=== PATIENT | female | born 1970 | race Caucasian/White ===

== ENCOUNTER 2018-11-14 11:40 | Day surgery (SDC) | payer OTHER, SELFPAY ==
[2018-11-14] VITALS (8 sets, daily range): BP systolic 109–155; BP diastolic 74–101; PULSE 90–109; RESP 11–20; TEMP 36.1–36.6; O2SAT 92–100; BMI 29.7
[2018-11-14] MEDS: SODIUM CHLORIDE 0.9% 1,000 ML 42 ML IV (12:40)
--- NOTE | 2018-11-14 13:05 | PM.HP.1 ---
History of Present Illness History of Present Illness Date Patient Seen: 11/14/18 Time Patient Seen: 13:05 Chief complaint: [id number] SCREENING COLONOSCOPY Narrative: Abnormal CT with possible colitis though symptoms have for the most part resolved. Rule out underlying Patient History Social History household members: spouse Family & Social History Social History: household members spouse Meds Home Medications and Allergies Allergies Allergy/AdvReac Type Severity Reaction Status Date / Time ciprofloxacin [From CIPRO] Allergy Mild MAKES Unverified 05/31/17 12:09 HEART RACE codeine [CODEINE] Allergy Mild NAUSEA Unverified 05/31/17 12:09 lisinopril Allergy Mild Fainting Verified 11/14/18 12:27 pseudoephedrine Allergy Mild Palpitation Verified 11/14/18 12:28 [From Sudafed] s Sulfa (Sulfonamide Allergy Mild MAKES Unverified 05/31/17 12:09 Antibiotics) HEART RACE [SULFA (SULFONAMIDE ANTIBIOTICS)] Exam Vital Signs (past 8 hours): - 11/14/18 12:18 Pulse Rate 98 H Respiratory Rate 16 Blood Pressure 155/101 H Pulse Oximetry 100 Oxygen Delivery Method Room Air Narrative Exam Narrative: Oropharynx free of lesions Chest clear to auscultation percussion Cardiac exam reveals no S3 or murmur Assessment & Plan Assessment & Plan narrative: Abnormal CT will with for the most part resolved symptom in the colitis rule out the residual colitis. Risks, benefits, alternatives have been explained. This will be performed for today and further recommendation will results from the findings.
--- NOTE | 2018-11-14 13:06 | PM.OP.ENDO ---
Operative Date/Time/Diagnoses Date of procedure: 11/14/18 Time of procedure: 13:06 Pre-op diagnosis: See indication and findings Procedure & Clinicians Study performed: Colonoscopy Same procedure as scheduled: Yes Indications: Abnormal CT Surgeon: Tomas Johnson Procedure Notes Procedure in detail: After informed consent was obtained the patient was placed in left lateral decubitus position. The video colonoscope was introduced the rectum and slowly advanced to cecum. On slow withdrawal mucosa was carefully examined. The scope was removed. The patient tolerated the procedure well. Blood loss none Complications none Sedation Total sedation time 19 minutes Versed 9 mg fentanyl 200 micro g IV titration Findings 1. Normal colonoscopy to cecum With her symptoms more less resolved and no findings to correspond to the findings on CT scan she does not need any follow-up in the office. She will need follow-up colonoscopy in 10 years.
[2018-11-14] MEDS: MIDAZOLAM 5 MG/5 ML VIAL IV (14:28)
[2018-11-14] MEDS: fentaNYL 250 MCG/5 ML INJ IV (14:30)
== END 2018-11-14 15:39 | disposition home or self-care (01) ==
PROVIDERS: PCP Nurse Practitioner Family; Visit Provider Internal Medicine Gastroenterology
PROC: 0DJD8ZZ Inspection of Lower Intestinal Tract, Via Natural or Artificial Opening Endoscopic (ICD-10-PCS; CPT 45378; principal; 2018-11-14 13:30)
DX: R93.3 Abnormal findings on diagnostic imaging of other parts of digestive tract (principal)
CPT/HCPCS: 45378; J2250; J3010